=== PATIENT | female | born 1965 | race African-American/Black ===

== ENCOUNTER 2018-01-13 21:20 | Inpatient (IN) | payer MEDICAID, OTHER ==
--- NOTE | 2018-01-13 22:27 | ED Physician Chart ---
ED Chief Complaint/HPI - Patient Information Date Seen:: 01/13/18 Time Seen:: 21:25 Chief Complaint:: Leg Swelling History of Present Illness:: onset x 2 days of LE erythema, swelling, pain, and dyspnea; pt denies trauma, H/ As, neck pain, C/P, cough, Abd. Pain, A/N/V/D/C, fever, chills, or urinary s/s Allergies:: Allergies Allergy/AdvReac Type Severity Reaction Status Date / Time Sulfa (Sulfonamide Allergy Verified 08/09/16 23:40 Antibiotics) Vitals:: Vital Signs - 8 hr 01/13/18 21:25 Temp 97.6 F HR 61 RR 18 BP 134/83 O2 Sat % 97 Historian:: Patient Review:: Nurse's Note Reviewed ED Review of Systems - Review of Systems General/Constitutional: No fever, No chills, No weight loss, No weakness, No diaphoresis, No edema, No loss of appetite Skin: Skin lesions, Rash, No bruising Head: No headache, No light-headedness Eyes: No loss of vision, No pain, No diplopia ENT: No earache, Nasal drainage, No sore throat, No tinnitus Neck: No neck pain, No swelling, No thyromegaly, No stiffness, No mass noted Cardio Vascular: No chest pain, No palpitations, No PND, No orthopnea, No edema Pulmonary: SOB, No cough, No sputum, No wheezing GI: No nausea, No vomiting, No diarrhea, No pain, No melena, No hematochezia, No constipation, No hematemesis G/U: No dysuria, No frequency, No hematuria, No nacturia Parole Board Member: No vaginal discharge, No abnormal vaginal bleed, No contraction Musculoskeletal: No bone or joint pain, No back pain, No muscle pain Endocrine: No polyuria, No polydipsia Psychiatric: No prior psych history, No depression, No anxiety, No suicidal ideation, No homicidal ideation, No auditory hallucination, No visual hallucination Hematopoietic: No bruising, No lymphadenopathy Allergic/Immuno: No urticaria, No angioedema Neurological: No syncope, No focal symptoms, No weakness, No paresthesia, No headache, No seizure, No dizziness, No confusion, No vertigo ED Past Medical History - Past Medical History Obtainable: Yes Past Medical History: HTN, DM, Arthritis Family History: Diabetes Melitus, HTN Social History: Non Smoker, No Alcohol, No Drug Use, Surgical History: Hysterectomy Psychiatricy History: None Medication: Reviewed Family Medical History - Family Member Aunt History Unknown: Yes Ethnicity: Non- Living Status: Hx Family Cancer: No Hx Family Coronary Artery Disease: No Hx Family Congestive Heart Failure: No Hx Family Hypertension: No Hx Family Diabetes: Yes Mother Hx Family Hypertension: Yes ED Physical Exam - Physical Examination General/Constitutional: Awake, Well-developed, well-nourished, Alert, No distress, GCS 15, Non-toxic appearing, Ambulatory Head: Atraumatic Eyes: Lids, conjuctiva normal, PERRL, EOMI Skin: Nl inspection, No rash, No skin lesions, No ecchymosis, Well hydrated, No lymphadenopathy ENMT: External ears, nose nl, TM canals nl, Nasal exam nl, Lips, teeth, gums nl , Oropharynx nl, Tonsils nl Neck: Nontender, Full ROM w/o pain, No JVD, No nuchal rigidity, No bruit, No mass, No stridor Respiratory: Nl effort/Exclusion Other Respiratory comments:: Lungs: + Rales Cardio Vascular: RRR, No murmur, gallop, rubs, NL S1 S2, Carotid/Femoral/Distal pulses equal bilaterally GI: No tenderness/rebounding/guarding, No organomegaly, No hernia, Normal BS's, Nondistended, No mass/bruits, No McBurney tenderness : No CVA tenderness Extremities: No tenderness or effusion, Full ROM, normal strength in all extremities, Normal digits & nails Other Extremities comments:: + PTE; + LE Cellulitis Neuro/Psych: Alert/oriented, DTR's symmetric, Normal sensory exam, Normal motor strength, Judgement/insight normal, Mood normal, Normal gait, No focal deficits Misc: Normal back, No paraspinal tenderness ED Labs/Radiology/EKG Results - Lab Results Comments:: K+: 3.3; U/A: + Leukocytes; H/H: + Anemia - Radiology Results Comments:: CM; Increased Broncho-Vascular Markings cw CHF - EKG Interpretations EKG Time:: 22:45 Rate & Rhythm: 61; NSR Comments:: LVH; non-specific st-t changes ED Septic Shock - . Is Septic Shock (SBP<90, OR Lactate>4 mmol\L) present?: No - <6hrs of presentation: Vital Signs: Vital Signs - 8 hr 01/13/18 21:25 Temp 97.6 F HR 61 RR 18 BP 134/83 O2 Sat % 97 ED Reassessment (Disposition) - Reassessment Reassessment Condition:: Improved - Diagnosis Diagnosis:: Dx: CHF; Cellulitis; UTI; Hypokalemia; Dependent Edema; Leg Pain; Dyspnea; Sepsis - Aftercare/Follow up Instructions Aftercare/Follow-Up Instructions:: Counseled pt regarding lab results/diagnosis & need follow up, Counseled pt & family regarding lab results/diagnosis & need follow up - Patient Disposition Discharge/Transfer:: Acute Care w/in this hosp Accepting Physician:: Dr. Clemons Time Called:: 0030 Time Responded:: 00:30 Admitted to:: Med/Surg Spoke to:: Dr. Clemons Admitting Medical Physician:: Dr. Clemons Condition at Disposition:: Stable, Improved
[2018-01-13] MEDS ORDERED: cefTRIAXone 1 GM in Sodium Chloride 0.9% 50 ML IV ONE (22:31)
[2018-01-13 23:02] LABS: HEMATOCRIT 34.7 % (41.0-60); HEMOGLOBIN 11.9 gm/dL (12-16); MEAN CELL VOLUME 90.8 fl (81-100); MEAN CORPUSCULAR HGB CONC 34.2 pg (28.0-36.0); MEAN PLATELET VOLUME 7.9 fl; PLATELET COUNT 225 Th/cmm (150-400); RED BLOOD COUNT 3.83 Mil/cmm (3.80-5.10); RED CELL DISTRIBUTION WIDTH 12.4 % (11.5-20.0); WHITE BLOOD COUNT 6.1 Th/cmm (4.8-10.8)
[2018-01-13 23:03] LABS: INR 0.97 (0.5-1.4); PROTHROMBIN TIME (TEST) 10.1 SECONDS (9.5-11.5)
[2018-01-13 23:08] LABS: ALBUMIN 3.7 gm/dL (3.7-5.3); ALKALINE PHOSPHATASE 67 U/L (34-104); BILIRUBIN,TOTAL 0.3 mg/dL (0.3-1.0); BUN - UREA NITROGEN 12 mg/dL (7-25); CALCIUM SERUM 9.3 mg/dL (8.6-10.3); CARBON DIOXIDE 29.3 mEq/L (21.0-31.0); CHLORIDE 103 mEq/L (98-107); CHOLESTEROL 205 mg/dL (<200); CREATININE - SERUM 0.7 mg/dL (0.6-1.2); CREATININE KINASE 104 U/L (30-223); GFR AFRICAN-AMERICAN > 60.0 ml/min (>90); GFR NON AFRICAN-AMERICAN > 60.0 ml/min; GLUCOSE 94 mg/dL (70-105); HDL -HIGH DENSITY LIPOPROTEIN 95 mg/dL (23-92); POTASSIUM SERUM 3.3 mEq/L (3.5-5.1); SGOT 21 U/L (13-39); SGPT/ALT 14 U/L (7-52); SODIUM SERUM 135 mEq/L (136-145); TOTAL PROTEIN,SERUM 7.4 gm/dL (6.0-8.3); TRIGLYCERIDES 118 mg/dL (<150)
[2018-01-13 23:09] LABS: % BASOPHILS 0.8 % (0.0-2.0); % EOSINOPHILS 2.1 % (0.0-5.0); % LYMPHOCYTES 35.6 % (20.0-50.0); % MONOCYTES 8.4 % (2.0-10.0); EOSINOPHILE ABSOLUTE 0.1 Th/cmm (0.1-0.4); MONOCYTE ABSOLUTE 0.2 Th/cmm (0.3-1.0); NEUTROPHILE ABSOLUTE 1.6 Th/cmm (1.8-8.0)
[2018-01-13 23:18] LABS: DDIMER QUANT 484 ng/mL (100-400)
[2018-01-13 23:39] LABS: URINE MICROSCOPIC INDICATED? YES; URINE SOURCE MIDSTREAM
[2018-01-13 23:43] LABS: URINE BILIRUBIN NEGATIVE (NEGATIVE); URINE BLOOD NEGATIVE (NEGATIVE); URINE GLUCOSE (UA) NEGATIVE (NEGATIVE); URINE KETONE TRACE mg/dL (NEGATIVE); URINE LEUKOCYTE ESTERASE TRACE (NEGATIVE); URINE NITRATE NEGATIVE (NEGATIVE); URINE PROTEIN TRACE mg/dL (NEGATIVE); URINE UROBILINOGEN 0.2 E.U./dL (0.2 - 1.0)
[2018-01-13 23:54] LABS: URINE CLARITY CLEAR (CLEAR); URINE COLOR YELLOW
[2018-01-13 23:58] LABS: URINE BACTERIA FEW /hpf (NONE SEEN); URINE EPITHELIAL CELLS FEW /lpf (FEW); URINE RBC 0-2 /hpf (0-5); URINE WBC 0-2 /hpf (0-5)
[2018-01-14] MEDS ORDERED: Potassium Chloride 20 mEq ER Tab PO ONE ×2 (01:42→01:54)
[2018-01-14] MEDS: INSULIN ASPART SLIDING SCALE 100 UNITS/ML UNIT SUBQ SCH ×4 (07:00→22:16)
--- NOTE | 2018-01-14 08:31 | Diagnostic Imaging Report ---
Portable chest x-ray Time: 0104 hours History: Back pain Allowing for portable technique the heart size is normal. No focal pulmonary parenchymal processes. No hilar or mediastinal abnormalities. Impression: No acute abnormalities.
--- NOTE | 2018-01-14 08:59 | Diagnostic Imaging Report ---
Bilateral lower extremity DVT study HISTORY: Bilateral distal calf edema, pain COMPARISON: None Technique: Longitudinal and transverse sonographic images of the bilateral lower extremity veins were obtained with doppler analysis. FINDINGS: There is normal compressibility, augmentation and phasicity of the bilateral common femoral, superficial femoral, popliteal, and posterior tibial veins. No thrombus is visualized. Bilateral lower extremity edema is noted. IMPRESSION: No evidence of thrombus within the bilateral lower extremity veins.
--- NOTE | 2018-01-14 13:50 | History & Physical ---
ADMIT DATE: 01/14/2018 CHIEF COMPLAINT: "Why am I admitted to psych carrion." HISTORY OF PRESENT ILLNESS: A 52-year-old female. She lives in [place], made an appointment to have dental work in [place]. She did have dental work and according to her, she did have some sinus infection and her both legs are swollen, so she came to Emergency Room. When patient came to the Emergency Room, the patient was seen by Dr. Guerrero and according to his evaluation, the patient has bilateral lower extremity edema and cellulitis and I was called in to admit this patient for cellulitis. The patient also had a chest x-ray and it did reveal cardiomegaly with questionable congestive heart failure. PAST MEDICAL HISTORY: Remarkable for as per patient's account, fibromyalgia, hypokalemia, hypertension, diabetes mellitus, but she is not taking any medication for that. MEDICATIONS AT HOME: She is taking antibiotic prescribed by dentist and [facility]ink[facility] for pain. ALLERGIES: The patient is allergic to SULFA. SOCIAL HISTORY: She states she lives in [place]. She is drug free. According to her account, the patient does smoke cigarettes and does not drink alcohol. FAMILY MEDICAL HISTORY: Remarkable for diabetes and hypertension. REVIEW OF SYSTEMS: The patient asking for medication for sinus as well as medication for her leg swelling. Otherwise, she does not have any problem. I tried to obtain review of system. The patient got agitated and asking me that the patient is this is a psych carrion and I had an argument with her try to calm down this patient, but she got more agitated and she kicked me out from her room and told me that "I am not doctor. I am a medical student." PHYSICAL EXAMINATION: Not done since the patient did not allow me to do the physical examination. VITAL SIGNS: Temperature 97.8, pulse 67, respiratory rate is 18, blood pressure 131/77. LABORATORY DATA: White count of 6.1, hemoglobin 11.9, platelet count of 225. PT and PTTs are normal. Potassium was 3.3, sodium 135, BUN and creatinine is normal. Liver functions are normal. Cholesterol was checked by Emergency Room MD 205 with HDL of 95. Urine was ___. Lower extremity venous Doppler study were negative. Chest x-ray were done, which is unremarkable. Final report is unremarkable. CLINICAL IMPRESSION: Unable to assess the patient at this time without physical examination due to the patient is being agitated and became very hostile towards me and did not allow me to do further assessment. PLAN: I have asked social service to see the patient and talked to her and once the patient comes down, maybe I will be able to see the patient again and give further examination and further assessment. Meanwhile, the patient has been admitted by me and getting her antibiotic vancomycin, which will be continued along with sliding scale insulin. The patient may require a psych consult considering her immediate change in her behavior as well as the patient did tell me she has previous history of substance abuse and she is a smoker, needs to make sure she is not use any street drugs. JOB# [id number]
--- NOTE | 2018-01-14 17:04 | Consultation ---
Consult Note - Consult Note Service Date: 01/14/18 Referring Physician: Valdemar Clemons Consult Note: PHYSICIAN Consultation Note: Date of Admission: 01/14/18 Purpose of Consultation: cellulitis Chief Complaint: Patient BRITT ARRINGTON was admitted to location Medical/ Surgical Unit I with CHF,CELLULITIS,UTI,HYPOKALEMIA. History of Present Illness: Patient is [id number] female with history of DM, HTN, DHF, Fibromyalgia, admitted to the hospital for comgestion of nose and swelling of the legs. She stated that she developed swelling of legs intermittent after walking for long distances or standing on her feet for longer time. She had dental some work was performed and removed all upper teeth to get new dentures. She denied any fevers or chills. Past Medical History: DM, HTN, DHF, Fibromyalgia Diagnoses TYPE 2 DIABETES MELLITUS WITHOUT COMPLICATIONS (01/14/18) HYPOKALEMIA (01/14/18) NICOTINE DEPENDENCE, CIGARETTES, UNCOMPLICATED (01/14/18) ESSENTIAL (PRIMARY) HYPERTENSION (01/14/18) HEART FAILURE, UNSPECIFIED (01/14/18) CELLULITIS, UNSPECIFIED (01/14/18) FIBROMYALGIA (01/14/18) URINARY TRACT INFECTION, SITE NOT SPECIFIED (01/14/18) Allergies Allergy/AdvReac Type Severity Reaction Status Date / Time Sulfa (Sulfonamide Allergy Verified 08/09/16 23:40 Antibiotics) Vital Signs Temp 97.9 F 01/14/18 12:00 Pulse 64 01/14/18 12:00 Resp 19 01/14/18 12:00 BP 118/60 01/14/18 12:00 Pulse Ox 97 01/14/18 12:00 Intake & Output 01/13/18 01/14/18 01/14/18 18:59 06:59 18:59 Intake Total 50 Balance 50 Weight (lbs) 83.915 kg 83.915 kg Intake: Oral 50 Other: Stool Characteristics Formed Laboratory Results - last 24 hr 01/14/18 06:58 POC Glucose 97 Home Medication Medication Instructions Recorded Type Celebrex 12/03/14 History Flexeril 12/03/14 History Metformin Hydrochloride [Metformin 500 mg PO TID 12/03/14 History HCl] Romance 325 mg-5 mg 12/03/14 History Aa8/A-Carnitin/Grp/[place]/Hc126 2 cap PO TID #20 cap 09/02/16 Rx [Gabadone] Azithromycin [Zithromax] 250 mg PO DAILY #0 tab 09/02/16 Rx Gabapentin 300 mg PO TID #20 capsule 09/02/16 Rx Potassium Bicarbonate/Cit AC 25 meq PO DAILY #20 tablet.eff 09/02/16 Rx [Potassium 25 Meq Tablet Eff] Current Medications Generic Name Dose Route Start Last Admin Trade Name Freq PRN Reason Stop Dose Admin Vancomycin HCl 1.25 gm/ Sodium 250 mls @ 165 mls/hr 01/14/18 10:00 01/14/18 12:28 Chloride IV 03/15/18 09:59 165 mls/hr Q12H KELVIN Administration Insulin Aspart 0 units 01/14/18 07:30 01/14/18 12:30 Novolog Insulin Sliding Scale SUBQ 03/15/18 07:29 Not Given ACHS KELVIN Protocol Miscellaneous 1 ea 01/14/18 01:47 Vancomycin Iv Per Pharmacy 03/15/18 01:46 PRN PRN PROTOCOL Review of Systems: A 12 point ROS was reviewed with the pertinent positive and negatives noted in the HPI. Social History She lives in [facility], active smoker. denies drugs or alcohol use. Family Medical History DM2, HTN. Physical Exam: General: Comfortable, not in any distress. HEENT: Head: NC NT. Oral cavity: moist, pink tongue. Eyes: no pallor, no icterus. Neck: supple, no JVD, no carotid bruit. Cardio: S1 and S2 WNL. Respiratory: Vesicular breath sounds Abdominal: sSoft NT ND BS present. Genital/Urinary: Deferred. Extremities: NCC edema of both legs Neurological: alert awake oriented times 3, no focal neuro deficits. Assessment: 1. Sinusitis. 2. swelling of legs? CHF versus dependant edema. 3. DM2 4. HTN. Plan: Will continue same treatment. Afrin and flonase nasal sprays. thank you Dr Clemons for involing me in taking care of this patient. Som Doyle Devesh N., M.D. [id number]
[2018-01-14] MEDS: Oxymetazoline 0.05% 15 mL Spray NS SCH (22:16)
--- NOTE | 2018-01-15 08:05 | Consultation ---
DATE OF CONSULTATION: 01/15/2018 PSYCHIATRIC CONSULTATION PATIENT'S AGE: 52. SEX: Female. PHYSICIAN: Dr. Clemons. WHITE [place]GAR SUPERVISOR: Atul Bhatia M.D., M.P.H. CHIEF COMPLAINT: Agitation. HISTORY OF PRESENT ILLNESS: The patient was admitted to the hospital because of swollen feet. The patient originally came from [place] to have dental work done. The patient was admitted to the hospital in order to get help with her swollen leg. When Dr. Clemons tried to evaluate her, the patient was agitated and irritable. The patient currently is sedated and she did not want to answer any of my questions, wanted to be left alone. She also was anxious. The patient did not have any thoughts of suicide or homicide. PAST PSYCHIATRIC HISTORY: Not known. PAST MEDICAL HISTORY: The patient has dental work done as well as swollen feet and infection. MENTAL STATUS EXAM: The patient appears older than stated age. Disheveled. Sedated. The patient did not answer any question regarding hallucinations or delusions has the patient was sleepy and did not answer most of my questions. ASSESSMENT: PRIMARY DIAGNOSIS: Unspecified psychosis. SECONDARY DIAGNOSIS: Rule out generalized anxiety disorder. TREATMENT PLAN: Currently we will give the patient Ativan on a p.r.n. basis until further evaluation. We will also reevaluate when more alert and more cooperative. Thank you Dr. Clemons and we will follow up with you. JOB# [id number]
[2018-01-15] MEDS ORDERED: Fluticasone Propionate 0.05mg/Actuation 16gm Nasal Spray NS SCH (09:00)
[2018-01-15 09:06] LABS: % EOSINOPHILS 2.7 % (0.0-5.0); % MONOCYTES 7.5 % (2.0-10.0); % NEUTROPHILS 59.8 % (40.0-80.0); EOSINOPHILE ABSOLUTE 0.1 Th/cmm (0.1-0.4); HEMOGLOBIN 13.6 gm/dL (12-16); LYMPHOCYTE ABSOLUTE 1.5 Th/cmm (1.5-3.0); MEAN CELL VOLUME 90.5 fl (81-100); MEAN CORPUSCULAR HEMOGLOBIN 30.1 pg (27.0-31.0); MEAN CORPUSCULAR HGB CONC 33.2 pg (28.0-36.0); MEAN PLATELET VOLUME 8.2 fl; MONOCYTE ABSOLUTE 0.4 Th/cmm (0.3-1.0); NEUTROPHILE ABSOLUTE 2.9 Th/cmm (1.8-8.0); PLATELET COUNT 201 Th/cmm (150-400); RED BLOOD COUNT 4.53 Mil/cmm (3.80-5.10); RED CELL DISTRIBUTION WIDTH 12.5 % (11.5-20.0); WHITE BLOOD COUNT 4.9 Th/cmm (4.8-10.8)
[2018-01-15] MEDS: Oxymetazoline 0.05% 15 mL Spray NS SCH (09:58)
[2018-01-15 10:41] LABS: ALB/GLOB RATIO 0.9 (1.0-1.8); ALBUMIN 3.6 gm/dL (3.7-5.3); ALKALINE PHOSPHATASE 71 U/L (34-104); BILIRUBIN,TOTAL 0.4 mg/dL (0.3-1.0); BUN - UREA NITROGEN 7 mg/dL (7-25); CALCIUM SERUM 9.8 mg/dL (8.6-10.3); CARBON DIOXIDE 24.5 mEq/L (21.0-31.0); CHLORIDE 102 mEq/L (98-107); CREATININE - SERUM 0.6 mg/dL (0.6-1.2); GFR AFRICAN-AMERICAN > 60.0 ml/min (>90); GFR NON AFRICAN-AMERICAN > 60.0 ml/min; GLUCOSE 129 mg/dL (70-105); POTASSIUM SERUM 3.5 mEq/L (3.5-5.1); SGOT 23 U/L (13-39); SGPT/ALT 15 U/L (7-52); SODIUM SERUM 137 mEq/L (136-145); TOTAL PROTEIN,SERUM 7.7 gm/dL (6.0-8.3)
[2018-01-15] MEDS: INSULIN ASPART SLIDING SCALE 100 UNITS/ML UNIT SUBQ SCH ×2 (12:35→12:36)
--- NOTE | 2018-01-15 13:51 | Progress Notes ---
DATE: PATIENT IDENTIFICATION: The patient is a 52-year-old. CHIEF COMPLAINT: "I have pain on my both hands and wrist." SUBJECTIVE: The patient otherwise no fever, no chills. Leg swelling is better. No cough or no headache. PHYSICAL EXAMINATION: VITAL SIGNS: On today's exam, temperature 97.8, pulse ____ respiratory is 18, blood pressure 158/84. HEENT: Poor dentition. Multiple absent teeth noted. NECK: Supple, no JVD. HEART: Regular, no murmur. CHEST: Lung equal in expansion. LUNGS: No wheezing, no crackles. ABDOMEN: Soft. No guarding, no rigidity. Liver, spleen not palpable. No palpable masses. EXTREMITIES: No edema of the leg. Peripheral pulses are +2, no calf tenderness noted. Carpal tunnel sign on both wrists are present. CLINICAL IMPRESSION: 1. Most likely bilateral carpal tunnel syndrome requiring using her pain and numbness. 2. Bilateral lower extremity edema and cellulitis significantly resolved. 3. Allergies to SULFA. 4. History of hypokalemia and hypertension by history. PLAN: 1. The patient will be given wrist splint. 2. I will prescribe patient's anti-inflammatory medicine, Mobic 750 mg daily along with patient is to take Keflex for her cellulitis and the patient can be discharged home. JOB# [id number]
--- NOTE | 2018-01-15 15:05 | Infectious Disease Prog Note ---
Infectious Disease Subjective - Review of Systems Service Date: 01/15/18 Subjective: No new change, no fever. Infectious Disease Objective - Results Result Diagrams: 01/15/18 05:00 01/15/18 08:50 Recent Labs: Laboratory Last Values WBC 4.9 Th/cmm (4.8-10.8) 01/15/18 05:00 RBC 4.53 Mil/cmm (3.80-5.10) 01/15/18 05:00 Hgb 13.6 gm/dL (12-16) 01/15/18 05:00 Hct 41.0 % (41.0-60) 01/15/18 05:00 MCV 90.5 fl (81-100) 01/15/18 05:00 MCH 30.1 pg (27.0-31.0) 01/15/18 05:00 MCHC Differential 33.2 pg (28.0-36.0) 01/15/18 05:00 RDW 12.5 % (11.5-20.0) 01/15/18 05:00 Plt Count 201 Th/cmm (150-400) 01/15/18 05:00 MPV 8.2 fl 01/15/18 05:00 Neutrophils % 59.8 % (40.0-80.0) 01/15/18 05:00 Lymphocytes % 30.0 % (20.0-50.0) 01/15/18 05:00 Monocytes % 7.5 % (2.0-10.0) 01/15/18 05:00 Eosinophils % 2.7 % (0.0-5.0) 01/15/18 05:00 Basophils % 0.0 % (0.0-2.0) 01/15/18 05:00 PT 10.1 SECONDS (9.5-11.5) 01/13/18 22:45 INR 0.97 (0.5-1.4) 01/13/18 22:45 PTT (Actin FS) 28.3 SECONDS (26.0-38.0) 01/13/18 22:45 D-Dimer 484 ng/mL (100-400) H 01/13/18 22:45 Sodium 137 mEq/L (136-145) 01/15/18 08:50 Potassium 3.5 mEq/L (3.5-5.1) 01/15/18 08:50 Chloride 102 mEq/L (98-107) 01/15/18 08:50 Carbon Dioxide 24.5 mEq/L (21.0-31.0) 01/15/18 08:50 Anion Gap 14.0 (7.0-16.0) 01/15/18 08:50 BUN 7 mg/dL (7-25) 01/15/18 08:50 Creatinine 0.6 mg/dL (0.6-1.2) 01/15/18 08:50 Est GFR ( Amer) > 60.0 ml/min (>90) 01/15/18 08:50 Est GFR (Non-Af Amer) > 60.0 ml/min 01/15/18 08:50 BUN/Creatinine Ratio 11.7 01/15/18 08:50 Glucose 129 mg/dL (70-105) H 01/15/18 08:50 POC Glucose 104 MG/DL (70 - 105) 01/15/18 12:34 Whole Bld Lactic Acid 1.00 mmol/L (0.60-1.99) 01/13/18 22:55 Calcium 9.8 mg/dL (8.6-10.3) 01/15/18 08:50 Total Bilirubin 0.4 mg/dL (0.3-1.0) 01/15/18 08:50 AST 23 U/L (13-39) 01/15/18 08:50 ALT 15 U/L (7-52) 01/15/18 08:50 Alkaline Phosphatase 71 U/L (34-104) 01/15/18 08:50 Creatine Kinase 104 U/L (30-223) 01/13/18 22:45 Troponin I 0.01 ng/mL (0.01-0.05) 01/13/18 22:45 B-Natriuretic Peptide 46.7 pg/mL (5.0-100.0) 01/13/18 22:45 Total Protein 7.7 gm/dL (6.0-8.3) 01/15/18 08:50 Albumin 3.6 gm/dL (3.7-5.3) L 01/15/18 08:50 Globulin 4.1 gm/dL 01/15/18 08:50 Albumin/Globulin Ratio 0.9 (1.0-1.8) L 01/15/18 08:50 Triglycerides 118 mg/dL (<150) 01/13/18 22:45 Cholesterol 205 mg/dL (<200) H 01/13/18 22:45 LDL Cholesterol Direct 79 mg/dL (75-193) 01/13/18 22:45 HDL Cholesterol 95 mg/dL (23-92) H 01/13/18 22:45 Serum , Qual NEGATIVE (NEGATIVE) 01/13/18 22:45 Urine Source MIDSTREAM 01/13/18 22:35 Urine Color YELLOW 01/13/18 22:35 Urine Clarity CLEAR (CLEAR) 01/13/18 22:35 Urine pH 6.0 (4.6 - 8.0) 01/13/18 22:35 Ur Specific [place] 1.025 (1.005-1.030) 01/13/18 22:35 Urine Protein TRACE mg/dL (NEGATIVE) 01/13/18 22:35 Urine Glucose (UA) NEGATIVE mg/dL (NEGATIVE) 01/13/18 22:35 Urine Ketones TRACE mg/dL (NEGATIVE) 01/13/18 22:35 Urine Blood NEGATIVE (NEGATIVE) 01/13/18 22:35 Urine Nitrate NEGATIVE (NEGATIVE) 01/13/18 22:35 Urine Bilirubin NEGATIVE (NEGATIVE) 01/13/18 22:35 Urine Urobilinogen 0.2 E.U./dL (0.2 - 1.0) 01/13/18 22:35 Ur Leukocyte Esterase TRACE (NEGATIVE) H 01/13/18 22:35 Urine RBC 0-2 /hpf (0-5) 01/13/18 22:35 Urine WBC 0-2 /hpf (0-5) 01/13/18 22:35 Ur Epithelial Cells FEW /lpf (FEW) 01/13/18 22:35 Calcium Oxalate Crystal MANY /hpf 01/13/18 22:35 Urine Bacteria FEW /hpf (NONE SEEN) 01/13/18 22:35 - Physical Exam Vitals and I&O: Vital Signs Temp 97.3 F 01/15/18 13:52 Pulse 70 01/15/18 13:52 Resp 18 01/15/18 13:52 BP 148/85 01/15/18 13:52 Pulse Ox 100 01/15/18 13:52 Intake & Output 01/14/18 01/15/18 01/15/18 18:59 06:59 18:59 Intake Total 600 800 Balance 600 800 Weight (lbs) 83.915 kg 83.915 kg 83.915 kg Intake: Intake, IV Amount 250 Vancomycin HCl 1.25 gm In 250 Sodium Chloride 0.9% 250 ml @ 165 mls/hr IV Q12H KELVIN Rx#:[id number] Oral 350 800 Other: # Voids 1 # Bowel Movements 0 Stool Characteristics Formed General: no acute distress, well developed, well nourished HEENT: atraumatic, normocephalic, PERRLA, EOMI Neck: supple, no thyromegaly Cardiovascular: S1S2, regular Lungs: clear to auscultation bilaterally, clear to percussion Abdomen: soft, no tender, no distended, no rebound Extremities: edema, no cyanosis, no clubbing Neurological: awake, alert, oriented Skin: intact - Procedures Procedures: Procedures Procedure Code Date D & C NEC 69.09 03/21/00 DILATION AND CURETTAGE 91037 03/21/00 DRAINAGE OF SKIN ABSCESS 50871 09/09/11 ELECTROCARDIOGRAM 89.52 04/14/00 ELECTROCARDIOGRAM COMPLETE 67157 04/14/00 INJECT/INFUSE NEC 99.29 04/14/13 OTHER SKIN & SUBQ I D 86.04 02/10/12 Infectious Disease Assmt/Plan - Assessment Assessment: 1. Sinusitis. 2. swelling of legs? CHF versus dependant edema. 3. DM2 4. HTN. - Plan Plan: Will continue same treatment. Afrin and flonase nasal sprays.
--- NOTE | 2018-01-17 18:11 | Progress Notes ---
DATE: 01/15/2018 SUBJECTIVE: Chart reviewed and the patient interviewed. Also discussed the patient's condition with the staff and reviewed records and labs. The patient is still in irritable mood and she is still minimizing her drug use problem. She also still seems to be having a slight lack of motivations for her drug use issues. She also wants to be left alone. Otherwise, the patient is compliant with taking medications with no side effect. ASSESSMENT: The patient is still high risk relapse. TREATMENT PLAN: Continue to monitor her behavior and her condition closely. Also, working on her rehabilitation and any possible detoxification. JOB# [id number]
== END 2018-01-15 14:10 | disposition home or self-care (01) | DRG 720 ==
LOC: ER 21:20 → MSI 01-14 01:50
PROVIDERS: ADMIT Internal Medicine; ATTEND Internal Medicine
DX: A41.9 Sepsis, unspecified organism (principal); I11.0 Hypertensive heart disease with heart failure; I50.9 Heart failure, unspecified; E11.9 Type 2 diabetes mellitus without complications; J32.9 Chronic sinusitis, unspecified; L03.115 Cellulitis of right lower limb; E87.6 Hypokalemia; L03.116 Cellulitis of left lower limb; F29 Unspecified psychosis not due to a substance or known physiological condition; F17.210 Nicotine dependence, cigarettes, uncomplicated; N39.0 Urinary tract infection, site not specified; M79.7 Fibromyalgia; Z88.2 Allergy status to sulfonamides; Z90.710 Acquired absence of both cervix and uterus; Z82.49 Family history of ischemic heart disease and other diseases of the circulatory system; Z83.3 Family history of diabetes mellitus
CPT/HCPCS: 36415-UA; 71045-TC; 80053-TC; 80061-TC; 81001-TC; 82550-TC; 82948-90; 83605; 83880-TC; 84484-TC; 84703-TC; 85025-TC; 85379-TC; 85610-TC; 85730-TC; 93005; 93970-TC-50; 94760; J0696; J1815; J1885; J3370; J7040

== ENCOUNTER 2018-05-13 23:40 | Emergency (ER) | payer OTHER ==
--- NOTE | 2018-05-14 00:24 | ED Physician Chart ---
ED Chief Complaint/HPI - Patient Information Date Seen:: 05/14/18 Time Seen:: 00:20 Chief Complaint:: cough History of Present Illness:: Patient's had a cough productive of yellow sputum for last 1 week. No chills or fever. Patient also complains of swelling and pain of ankles right more than left. Allergies:: Allergies Allergy/AdvReac Type Severity Reaction Status Date / Time Sulfa (Sulfonamide Allergy Verified 05/13/18 23:50 Antibiotics) Vitals:: Vital Signs - 8 hr 05/13/18 23:50 Temp 98.3 F HR 78 RR 18 BP 128/74 O2 Sat % 100 Historian:: Patient ED Review of Systems - Review of Systems General/Constitutional: No fever, No chills Skin: No skin lesions Head: No headache Eyes: No loss of vision ENT: No earache Neck: No neck pain Cardio Vascular: No chest pain Pulmonary: Cough, Sputum GI: No nausea, No vomiting, No diarrhea G/U: No dysuria Musculoskeletal: No bone or joint pain Endocrine: No polyuria, No polydipsia Psychiatric: No prior psych history Hematopoietic: No bruising Allergic/Immuno: No urticaria Neurological: No syncope ED Past Medical History - Past Medical History Past Medical History: DM, Arthritis, Other (fibromyalgia; kidney stones) Family History: None Social History: Smoker, Illicit Drug Use, Other (injects heroin) Surgical History: Appendectomy, Hysterectomy, other (tubal ligation) Psychiatricy History: None Medication: None Family Medical History - Family Member Aunt History Unknown: Yes Ethnicity: Non- Living Status: Hx Family Cancer: No Hx Family Coronary Artery Disease: No Hx Family Congestive Heart Failure: No Hx Family Hypertension: No Hx Family Diabetes: Yes Mother History Unknown: Yes Hx Family Hypertension: Yes ED Physical Exam - Physical Examination General/Constitutional: No distress Other Gen/Cons comments:: Easy unlabored respirations; no cough Head: Atraumatic Eyes: Lids, conjuctiva normal, PERRL Other Skin comments:: Edema and swelling both lower legs, ankles, and feet. ENMT: External ears, nose nl, Lips, teeth, gums nl Other ENMT comments:: No upper teeth Neck: No nuchal rigidity Respiratory: Nl effort/Exclusion, Clear to Auscultation Cardio Vascular: RRR, No murmur, gallop, rubs, NL S1 S2 GI: No tenderness/rebounding/guarding : No CVA tenderness Other Extremities comments:: See above under skin Neuro/Psych: No focal deficits ED Labs/Radiology/EKG Results - Radiology Results Results: Chest x-ray negative ED Septic Shock - . Is Septic Shock (SBP<90, OR Lactate>4 mmol\L) present?: No - <6hrs of presentation: Vital Signs: Vital Signs - 8 hr 05/13/18 23:50 Temp 98.3 F HR 78 RR 18 BP 128/74 O2 Sat % 100 ED Reassessment (Disposition) - Reassessment Reassessment Condition:: Unchanged - Diagnosis Diagnosis:: Viral bronchitis; peripheral edema - Aftercare/Follow up Instructions Aftercare/Follow-Up Instructions:: Refer to Discharge Instructions - Patient Disposition Discharge/Transfer:: Home Condition at Disposition:: Stable, Unchanged
--- NOTE | 2018-05-14 08:36 | Diagnostic Imaging Report ---
Chest x-ray single view History: Cough Time: 0124 hours COMPARISON: 01/14/2018 The heart size is normal. No focal pulmonary parenchymal processes. No hilar or mediastinal abnormalities. Impression: No acute abnormalities
== END 2018-05-14 02:10 | disposition home or self-care (01) ==
LOC: ER 23:40
DX: J20.8 Acute bronchitis due to other specified organisms (principal); R60.0 Localized edema; E11.9 Type 2 diabetes mellitus without complications; F17.200 Nicotine dependence, unspecified, uncomplicated; Z90.49 Acquired absence of other specified parts of digestive tract; Z90.710 Acquired absence of both cervix and uterus; Z88.2 Allergy status to sulfonamides
CPT/HCPCS: 99283; 96372; 71045; J1885; Z7502